=== PATIENT | female | born 2000 | race African-American/Black ===

== ENCOUNTER 2018-12-12 13:31 | Emergency (ER) | payer BC ==
--- NOTE | 2018-12-12 13:45 | EDM.PDOC ---
ED HPI GENERAL MEDICAL PROBLEM - General Chief Complaint: Headache Stated Complaint: HEADACHE Time Seen by Provider: 12/12/18 13:45 Source of Information: Reports: Patient History Limitations: Reports: No Limitations - History of Present Illness INITIAL COMMENTS - FREE TEXT/NARRATIVE: HISTORY AND PHYSICAL: History of present illness: Patient is a 18-year-old female who presents to the emergency room with complaints of frontal migraine headache with noise sensitivity 1.5 weeks. She states that she does typically get occasional migraines although this current one is more painful than usual. She denies any recent head injury, trauma or falls. She states she has been using [id number] Tylenol and ibuprofen without any relief. Patient denies any fever, chills, change in vision, syncope or near syncope. Denies any chest pain, back pain, shortness of breath or cough. Denies any abdominal pain, nausea, vomiting, diarrhea, constipation or dysuria. Has not noted any blood in urine or stool. Patient has been eating and drinking appropriately. Review of systems: As per history of present illness and below otherwise all systems reviewed and negative. Past medical history: As per history of present illness and as reviewed below otherwise noncontributory. Surgical history: As per history of present illness and as reviewed below otherwise noncontributory. Social history: See social history for further information Family history: As per history of present illness and as reviewed below otherwise noncontributory. Physical exam: General: Well-developed and well-nourished 18-year-old female. Alert and oriented. Nontoxic appearing and in no acute distress. HEENT: Atraumatic, normocephalic, pupils equal and reactive bilaterally, negative for conjunctival pallor or scleral icterus, mucous membranes moist, TMs normal bilaterally, throat clear, neck supple, nontender, trachea midline. No drooling or trismus noted. No meningeal signs. No hot potato voice noted. Lungs: Clear to auscultation, breath sounds equal bilaterally, chest nontender. Heart: S1S2, regular rate and rhythm without overt murmur Abdomen: Soft, nondistended, nontender. Negative for masses. Negative for costovertebral tenderness. Skin: Intact, warm, dry. No lesions or rashes noted. Extremities: Atraumatic, moves all extremities per self without difficulty or deficits, negative for cords or calf pain. Neurovascular unremarkable. Neuro: Awake, alert, oriented. Cranial nerves II through XII unremarkable. Cerebellum unremarkable. Motor and sensory unremarkable throughout. Exam nonfocal. Notes: Patient's initial blood pressure reading is elevated. Patient and mother state that when she is evaluated in a hospital setting, typically runs high. They offer no concerns or complaints regarding the high blood pressure reading. Negative test. Head CT shows no acute findings. Symptoms have resolved after IV fluids and medications. Follow-up and supportive care measures were reviewed and discussed. Voices understanding and is agreeable to plan of care. Denies any further questions or concerns at this time. Diagnostics: HCGU, Head CT Therapeutics: IV fluids, zofran, toradol, benadryl, reglan Prescription: None Impression: Migraine Headache Plan: 1. Please use Tylenol and/or Ibuprofen as needed for pain and fever management. 2. Get plenty of Rest. Encourage fluids to prevent dehydration. 3. Please follow up with your primary care provider. Return to the ED as needed as discussed. Definitive disposition and diagnosis as appropriate pending reevaluation and review of above. headache Pain Score (Numeric/FACES): 7 - Related Data Allergies Allergy/AdvReac Type Severity Reaction Status Date / Time No Known Allergies Allergy Verified 12/12/18 13:50 Home Meds: Home Meds Norethindrone-Ethinyl Estrad [Dasetta] 1 each PO DAILY 12/12/18 [History] ED ROS GENERAL - Review of Systems Review Of Systems: ROS reveals no pertinent complaints other than HPI. - Physical Exam Exam: See Below (See dictation) Course - Vital Signs Last Recorded V/S: Last Vital Signs Temp 98.7 F 12/12/18 13:47 Pulse 99 12/12/18 16:07 Resp 18 12/12/18 16:07 BP 145/99 H 12/12/18 16:07 Pulse Ox 100 12/12/18 16:07 - Orders/Labs/Meds Labs: Laboratory Tests 12/12/18 Range/Units 14:43 Urine HCG, Qual NEGATIVE (NEGATIVE) Meds: Medications Discontinued Medications Generic Name Dose Route Start Last Admin Trade Name Freq PRN Reason Stop Dose Admin Diphenhydramine HCl 50 mg 12/12/18 13:50 12/12/18 14:00 Benadryl IVPUSH 12/12/18 13:51 50 mg ONETIME ONE Administration Sodium Chloride 1,000 mls @ 999 mls/hr 12/12/18 13:50 12/12/18 14:00 Normal Saline IV 12/12/18 14:50 999 mls/hr STAT ONE Administration Ketorolac Tromethamine 30 mg 12/12/18 13:50 12/12/18 14:00 Toradol IVPUSH 12/12/18 13:51 30 mg ONETIME ONE Administration Metoclopramide HCl 10 mg 12/12/18 13:50 12/12/18 14:00 Reglan IV 12/12/18 13:51 10 mg ONETIME ONE Administration Ondansetron HCl 4 mg 12/12/18 13:50 12/12/18 14:00 Zofran IVPUSH 12/12/18 13:51 4 mg ONETIME ONE Administration Ondansetron HCl Confirm 12/12/18 13:53 12/12/18 14:00 Zofran Administered 12/12/18 13:54 Not Given Dose 4 mg .ROUTE .STK-MED ONE Departure - Departure Time of Disposition: 17:59 Disposition: Home, Self-Care 01 Clinical Impression: Migraine - Discharge Information Instructions: Migraine Headache, [id number] Referrals: PCP,None [Primary Care Provider] - Forms: ED Department Discharge Additional Instructions: The following information is given to patients seen in the emergency department who are being discharged to home. This information is to outline your options for follow-up care. We provide all patients seen in our emergency department with a follow-up referral. The need for follow-up, as well as the timing and circumstances, are variable depending upon the specifics of your emergency department visit. If you don't have a primary care physician on staff, we will provide you with a referral. We always advise you to contact your personal physician following an emergency department visit to inform them of the circumstance of the visit and for follow-up with them and/or the need for any referrals to a consulting specialist. The emergency department will also refer you to a specialist when appropriate. This referral assures that you have the opportunity for follow-up care with a specialist. All of these measure are taken in an effort to provide you with optimal care, which includes your follow-up. Under all circumstances we always encourage you to contact your private physician who remains a resource for coordinating your care. When calling for follow-up care, please make the office aware that this follow-up is from your recent emergency room visit. If for any reason you are refused follow-up, please contact the [facility] at and asked to speak to the emergency department charge nurse. [facility] [address] [place] [address] [facility] [address] [place] [id number] 1. Please use Tylenol and/or Ibuprofen as needed for pain and fever management. 2. Get plenty of Rest. Encourage fluids to prevent dehydration. 3. Please follow up with your primary care provider. Return to the ED as needed as discussed.
[2018-12-12] MEDS ORDERED: diphenhydrAMINE 50 MG/ML SDV IVPUSH ONE (13:50)
[2018-12-12] MEDS ORDERED: Sodium Chloride 0.9% 1,000 ML IV ONE (13:50)
[2018-12-12] MEDS ORDERED: Ondansetron 4 MG/2 ML SDV IVPUSH ONE (13:50)
[2018-12-12] MEDS ORDERED: Ketorolac 30 MG/ML SDV IVPUSH ONE (13:50)
[2018-12-12] MEDS ORDERED: Metoclopramide 10 MG/2 ML SDV IV ONE (13:50)
[2018-12-12] MEDS ORDERED: Ondansetron 4 MG/2 ML SDV ONE (13:53)
--- NOTE | 2018-12-12 16:01 | CT ---
INDICATION: Headache for the last 1-2 weeks with no known trauma . Comparison: None. TECHNIQUE: CT head without intravenous contrast; coronal and sagittal reformats. FINDINGS: No intracranial hemorrhage. No mass lesions. No evidence of shift of the midline structures. The calvarium is unremarkable. The ventricular system, subarachnoid cisterns and the cerebral sulci are unremarkable. IMPRESSION: Negative unenhanced head CT. Please note that all CT scans at this facility use dose modulation, iterative reconstruction, and/or weight-based dosing when appropriate to reduce radiation dose to as low as reasonably achievable. Dictated by Kylee Hall MD @ Dec 12 2018 3:56PM Signed by Dr. Kylee Hall @ Dec 12 2018 3:59PM
== END 2018-12-12 16:07 | disposition home or self-care (01) ==
LOC: MW.ED 13:31
DX: G43.909 Migraine, unspecified, not intractable, without status migrainosus (principal); Z79.899 Other long term (current) drug therapy
CPT/HCPCS: 70450; 81025; 96361; 96374; 96375; 99284; J1200; J1885; J2405; J2765; J7040